=== PATIENT | male | born 1995 | race Caucasian/White ===

== ENCOUNTER 2021-06-29 10:40 | Emergency (ER) | payer OTHER ==
[2021-06-29 10:49] VITALS: BP 144/85; PULSE 80; TEMP 97.8; BMI 28.8
[2021-06-29] MEDS ORDERED: METHOCARBAMOL 500 MG TABLET PO ONE (11:39)
[2021-06-29] MEDS ORDERED: IBUPROFEN 400 MG TABLET (FP) PO ONE ×2 (11:39→11:41)
[2021-06-29] MEDS ORDERED: METHOCARBAMOL 500 MG TABLET ONE (11:42)
== END 2021-06-29 12:16 | disposition home or self-care (01) ==
LOC: JERFT 10:40
DX: S80.01XA Contusion of right knee, initial encounter (principal); S13.4XXA Sprain of ligaments of cervical spine, initial encounter; V49.40XA Driver injured in collision with unspecified motor vehicles in traffic accident, initial encounter
CPT/HCPCS: 73562-TC-RT-FY; 99283-25